=== PATIENT | male | born 1995 | race Hispanic/Latino ===

== ENCOUNTER 2020-02-07 17:30 | Emergency (ER) | payer SELFPAY ==
[2020-02-07] MEDS ORDERED: MORPHINE 4 MG/ML SYR ONE (17:41)
[2020-02-07] MEDS ORDERED: ONDANSETRON 4 MG/2 ML VIAL ONE (17:41)
--- NOTE | 2020-02-07 18:46 | RAD REPORT ---
EXAM DESCRIPTION: Emma Ham Left02/07/2020 6:30 pm CLINICAL HISTORY: Left leg pain status post injury FINDINGS: No fracture is seen
--- NOTE | 2020-02-07 18:49 | RAD REPORT ---
EXAM DESCRIPTION: RAD - Foot Left 3 View - 02/07/2020 6:30 pm CLINICAL HISTORY: Left Foot pain status post fall FINDINGS: No fracture or dislocation is seen.
--- NOTE | 2020-02-07 18:51 | RAD REPORT ---
EXAM DESCRIPTION: RAD - Ankle Left 3 View -02/07/2020 6:30 pm CLINICAL HISTORY: Left ankle pain status post injury FINDINGS: No fracture is seen. Borderline widening of the medial clear space may indicate an injury to the ligament
--- NOTE | 2020-02-07 19:41 | ER ---
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 He slipped and fell off a 5-6 foot ledge landing on his feet, c/o left ankle and knee pain. Coronavirus screen: Patient denies fever greater than 100.4F, cough, shortness of breath, or difficulty breathing. Proceed with normal triage process. Ebola Screen: No symptoms or risks identified at this time. Initial Sepsis Screen: Does the patient meet any 2 criteria? No. Patient's initial sepsis screen is negative. Does the patient have a suspected source of infection? No. Patient's initial sepsis screen is negative. Risk Assessment: Do you want to hurt yourself or someone else? Patient reports no desire to harm self or others. Onset of symptoms was February 07, 2020. 17:21 Method Of Arrival: EMS: [facility] 17:21 Acuity: TALON 4 jl7 Triage Assessment: 17:24 General: Appears in no apparent distress. uncomfortable, Behavior is calm, cooperative, jl7 appropriate for age. Pain: Complains of pain in left knee and left ankle Pain currently is 8 out of 10 on a pain scale. Neuro: Level of Consciousness is awake, alert, obeys commands, Oriented to person, place, time, situation. Cardiovascular: Patient's skin is warm and dry. Pulses are palpable in right radial artery, left radial artery, left posterior tibial artery and left dorsalis pedis artery. Respiratory: Airway is patent Respiratory effort is even, unlabored, Respiratory pattern is regular, symmetrical. Derm: Skin is pink, warm \T\ dry. Musculoskeletal: Swelling absent. Injury Description: no injury noted, pt reports pain to left ankle and knee. Historical: - Allergies: 17:24 No Known Allergies; jl7 - Home Meds: 17:24 None [Active]; jl7 - PMHx: 17:24 None; jl7 - PSHx: 17:24 None; jl7 - Immunization history:: Adult Immunizations unknown. - Social history:: Smoking status: Patient reports the use of cigarette tobacco products, smokes one-half pack cigarettes per day. - Family history:: not pertinent. Screenin:41 Abuse screen: Denies threats or abuse. Denies injuries from another. Nutritional jl7 screening: No deficits noted. Tuberculosis screening: No symptoms or risk factors identified. Fall Risk IV access (20 points). Total Tripp Fall Scale indicates No Risk (0-24 pts). Assessment: 19:30 General: Appears in no apparent distress. Behavior is calm, cooperative, appropriate ea for age. Pain: Complains of pain in left leg. Neuro: Level of Consciousness is awake, alert, obeys commands, Oriented to person, place, time. Respiratory: Airway is patent Respiratory effort is even, unlabored, Respiratory pattern is regular, symmetrical. Derm: Skin is pink, warm \T\ dry. 20:21 Reassessment: Patient and/or family updated on plan of care and expected duration. Pain ea level reassessed. Patient is alert, oriented x 3, equal unlabored respirations, skin warm/dry/pink. Discharge instruction given to patient, verbalized the understanding of instruction. Pt left ED via wheelchair assisted to private vehicle with family, pt tolerated well. Vital Signs: 17:21 BP 130 / 72; Pulse 71; Resp 17 S; Temp 99.3(O); Pulse Ox 100% on R/A; Weight 79.83 kg jl7 (R); Height 5 ft. 6 in. (167.64 cm) (R); Pain 8/10; 17:41 BP 124 / 77; Pulse 74; Resp 16 S; Pulse Ox 100% on R/A; jl7 18:43 BP 118 / 68; Pulse 72; Resp 17; Pulse Ox 100% ; Pain 6/10; jl7 19:00 BP 107 / 57; Pulse 80; Resp 18; Pulse Ox 98% ; ea 19:45 BP 122 / 74; Pulse 68; Resp 18; Pulse Ox 100% ; ea 17:21 Body Mass Index 28.41 (79.83 kg, 167.64 cm) jl7 ED Course: 17:21 Patient arrived in ED. jl7 17:21 Gustabo Guevara MD is Attending Physician. ma2 17:24 Triage completed. jl7 17:24 Arm band placed on right wrist. jl7 17:28 Jackeline Watt, MICK is Primary Nurse. jl7 17:41 Patient has correct armband on for positive identification. Bed in low position. Call mariah light in reach. Side rails up X2. Pulse ox on. NIBP on. 17:41 Inserted saline lock: 20 gauge in right antecubital area, using aseptic technique. jl7 ,using aseptic technique. Inserted by MICK Hyman. 18:30 Tib Fib Left XRAY In Process Unspecified. EDMS 18:30 Foot Left 3 View XRAY In Process Unspecified. EDMS 18:30 Ankle Left 3 View XRAY In Process Unspecified. EDMS 20:20 IV discontinued, intact, bleeding controlled, No redness/swelling at site. Pressure ea dressing applied. 20:24 No provider procedures requiring assistance completed. ea Administered Medications: 17:28 CANCELLED (Other Intervention Used): Hope 10 mg-325 mg 1 tabs PO once; RASS on ADMIN: [facility] Combtv4, Very Agttd3, Agttd2, Rstlss1, AlertClm0, Drwsy-1, Lt Sdtn-2, Mod Sdtn-3, Dp Sdtn-4, UnArsble-5 17:38 Drug: Zofran (Ondansetron) 4 mg Route: IVP; Site: right antecubital; jl7 18:44 Follow up: Response: No adverse reaction jl7 17:40 Drug: morphine 4 mg Route: IVP; Site: right antecubital; jl7 18:00 Follow up: Response: No adverse reaction; Pain is decreased jl7 20:08 Drug: Hope 5 mg-325 mg 1 tabs {Note: RASS 0.} Route: PO; ea 20:26 Follow up: Response: Medication administered at discharge. ea Outcome: 19:38 Discharge ordered by . lola 20:24 Discharged to home via wheelchair, with family. ea 20:24 Condition: stable 20:24 Discharge instructions given to patient, Instructed on discharge instructions, follow up and referral plans. medication usage, Demonstrated understanding of instructions, follow-up care, medications, Prescriptions given X 1. 20:26 Patient left the ED. ea Signatures: Dispatcher [employer] Jackeline Lynn RN RN [email or web address] Juliet Mar, RN RN ea Paola, Gustabo, MD GONSALEZ ma2
--- NOTE | 2020-02-07 19:41 | EDPHYS ---
Physician Documentation [facility] Name: Yoandy Mora Age: 24 yrs Sex: Male : 1995 Arrival Date: 02/07/2020 Time: 17:21 Bed 2 Private MD: ED Physician Gustabo Guevara HPI: 02/06 17:42 This 24 yrs old Male presents to ER via EMS with complaints of Leg Injury. ma2 17:42 The patient presents with an injury, pain. The complaints affect the medial aspect of ma2 left knee, medial aspect of left calf, left medial ankle and medial aspect of left foot. Onset: The symptoms/episode began/occurred suddenly, 1 hour(s) ago. Associated signs and symptoms: Pertinent positives: Pertinent negatives fever, numbness, swelling, tingling, warmth, weakness. Severity of symptoms: At their worst the symptoms were mild, moderate, in the emergency department the symptoms are unchanged. The patient has not experienced similar symptoms in the past. Historical: - Allergies: 17:24 No Known Allergies; jl7 - Home Meds: 17:24 None [Active]; jl7 - PMHx: 17:24 None; jl7 - PSHx: 17:24 None; jl7 - Immunization history:: Adult Immunizations unknown. - Social history:: Smoking status: Patient reports the use of cigarette tobacco products, smokes one-half pack cigarettes per day. - Family history:: not pertinent. ROS: 17:42 Constitutional: Negative for fever, chills, and weight loss. ma2 17:42 All other systems are negative. Exam: 17:42 Constitutional: This is a well developed, well nourished patient who is awake, alert, ma2 and in no acute distress. Chest/axilla: Normal chest wall appearance and motion. Nontender with no deformity. No lesions are appreciated. Cardiovascular: Regular rate and rhythm with a normal S1 and S2. No gallops, murmurs, or rubs. Normal PMI, no JVD. No pulse deficits. Respiratory: Lungs have equal breath sounds bilaterally, clear to auscultation and percussion. No rales, rhonchi or wheezes noted. No increased work of breathing, no retractions or nasal flaring. Abdomen/GI: Soft, non-tender, with normal bowel sounds. No distension or tympany. No guarding or rebound. No evidence of tenderness throughout. Skin: Warm, dry with normal turgor. Normal color with no rashes, no lesions, and no evidence of cellulitis. MS/ Extremity: Pulses equal, no cyanosis. Neurovascular intact. limited ROM on left ankle and knee and foot d/t pedro, and ttp, other joint shows Full, normal range of motion. Neuro: Awake and alert, GCS 15, oriented to person, place, time, and situation. Cranial nerves II-XII grossly intact. Motor strength 5/5 in all extremities. Sensory grossly intact. Cerebellar exam normal. Normal gait. Vital Signs: 17:21 BP 130 / 72; Pulse 71; Resp 17 S; Temp 99.3(O); Pulse Ox 100% on R/A; Weight 79.83 kg jl7 (R); Height 5 ft. 6 in. (167.64 cm) (R); Pain 8/10; 17:41 BP 124 / 77; Pulse 74; Resp 16 S; Pulse Ox 100% on R/A; jl7 18:43 BP 118 / 68; Pulse 72; Resp 17; Pulse Ox 100% ; Pain 6/10; jl7 19:00 BP 107 / 57; Pulse 80; Resp 18; Pulse Ox 98% ; ea 19:45 BP 122 / 74; Pulse 68; Resp 18; Pulse Ox 100% ; ea 17:21 Body Mass Index 28.41 (79.83 kg, 167.64 cm) jl7 Procedures: 17:42 Splinting: Splint applied to left leg using Orthoglass splint, applied by tech. nurse. ma2 post reduction film - Examined by me, post splint application: neurovascular intact, 2+ distal pulses palpable, brisk capillary refill noted, Patient tolerated well. MDM: 17:21 Patient medically screened. ma2 17:42 Differential diagnosis: dislocation, closed fracture, contusion, abrasion. Data ma2 reviewed: vital signs, nurses notes. Counseling: I had a detailed discussion with the patient and/or guardian regarding: the historical points, exam findings, and any diagnostic results supporting the discharge/admit diagnosis, the presence of at least one elevated blood pressure reading (>120/80) during this emergency department visit, the need for outpatient follow up. 17:44 ED course: prp aware negative for drug seeking hx . ma2 03/24 17:22 Order name: Tib Fib Left XRAY; Complete Time: 19:22 [facility] 02/06 17:22 Order name: Foot Left 3 View XRAY; Complete Time: 19:22 [facility] 02/06 17:22 Order name: Ankle Left 3 View XRAY; Complete Time: 19:22 [facility] 02/06 19:37 Order name: Splint: ortho boot; Complete Time: 19:59 rv Administered Medications: 17:28 CANCELLED (Other Intervention Used): [place] 10 mg-325 mg 1 tabs PO once; RASS on ADMIN: jl7 Combtv4, Very Agttd3, Agttd2, Rstlss1, AlertClm0, Drwsy-1, Lt Sdtn-2, Mod Sdtn-3, Dp Sdtn-4, UnArsble-5 17:38 Drug: Zofran (Ondansetron) 4 mg Route: IVP; Site: right antecubital; [facility] 18:44 Follow up: Response: No adverse reaction [facility] 17:40 Drug: morphine 4 mg Route: IVP; Site: right antecubital; 7 18:00 Follow up: Response: No adverse reaction; Pain is decreased jl7 20:08 Drug: [place] 5 mg-325 mg 1 tabs {Note: RASS 0.} Route: PO; ea 20:26 Follow up: Response: Medication administered at discharge. pedro Disposition: 02/07/20 19:38 Discharged to Home. Impression: Sprain of other ligament of left ankle. - Condition is Stable. - Discharge Instructions: Ankle Sprain. - Prescriptions for Tylenol- Codeine #3 300-30 mg Oral Tablet - take 2 tablet by ORAL route every 6 hours As needed; 30 tablet. - Work release form, Medication Reconciliation Form, Thank You Letter, Antibiotic Education, Prescription Opioid Use form. - Follow up: Private Physician; When: Tomorrow; Reason: If symptoms return, Continuance of care. - Notes: follow up with pcp and get MRI if ankle pain last for 2 weeks Signatures: Dispatcher [employer] Jackeline Lynn RN RN jl7 Juliet Mar RN RN Gustabo Robledo MD MD mt2 Yobani, Adin, RN RN rv Corrections: (The following items were deleted from the chart) 17:28 17:23 [place] 10 mg-325 mg 1 tabs PO once; RASS on ADMIN: Combtv4, Very Agttd3, Agttd2, jl7 Rstlss1, AlertClm0, Drwsy-1, Lt Sdtn-2, Mod Sdtn-3, Dp Sdtn-4, UnArsble-5 ordered. ma2 18:30 17:36 Knee Left 3 View+RAD.RAD.BRZ ordered. EDMS EDMS 20:26 19:38 02/07/2020 19:38 Discharged to Home. Impression: Sprain of other ligament of left ea ankle. Condition is Stable. Prescriptions for Tylenol-Codeine #3 300-30 mg Oral Tablet - take 2 tablet by ORAL route every 6 hours As needed; 30 tablet. and Forms are Medication Reconciliation Form, Thank You Letter, Antibiotic Education, Prescription Opioid Use. Follow up: Private Physician; When: Tomorrow; Reason: If symptoms return, Continuance of care. ma2
[2020-02-07] MEDS ORDERED: HYDROCODONE/APAP 5/325 MG TAB ONE (20:10)
[2020-02-07 20:41] VITALS: BP 122/74; O2SAT 100
== END 2020-02-07 20:26 | disposition home or self-care (01) ==
LOC: ER 17:30
DX: S93.492A Sprain of other ligament of left ankle, initial encounter (principal); F17.210 Nicotine dependence, cigarettes, uncomplicated
CPT/HCPCS: 96374; 96375; 99284; J2405